=== PATIENT | female | born 1995 | race African-American/Black ===

== ENCOUNTER 2023-06-17 19:07 | Emergency (ER) | payer MEDICAID ==
[~2023-06-17] VITALS: Ht 170.2 cm; Wt 79.0 kg
[2023-06-17 19:09] VITALS: BP 152/97; PULSE 74; RESP 18; TEMP 98.4; O2SAT 99
== END 2023-06-17 19:35 | disposition left against medical advice (07) ==
LOC: ER 19:07
DX: G40.209 Localization-related (focal) (partial) symptomatic epilepsy and epileptic syndromes with complex partial seizures, not intractable, without status epilepticus (principal); Z53.29 Procedure and treatment not carried out because of patient's decision for other reasons
CPT/HCPCS: 99283